=== PATIENT | male | born 1975 | race African-American/Black ===

== ENCOUNTER 2025-04-11 21:42 | Emergency (ER) | payer MEDICAID ==
[~2025-04-11] VITALS: Ht 172.7 cm; Wt 66.0 kg
[2025-04-11 21:46] VITALS: O2SAT 96
[2025-04-11] MEDS ORDERED: BO1 TP (22:34)
[2025-04-11] MEDS: TETANUS, DIPHTHERIA, PERTUSSIS VAC/PF 0.5ML (>10YR OLD) IM ONE (23:29)
[2025-04-11 23:30] VITALS: BP 119/77; PULSE 89; RESP 17; TEMP 37
== END 2025-04-11 23:29 | disposition home or self-care (01) ==
LOC: ER 21:42
DX: S60.511A Abrasion of right hand, initial encounter (principal); R09.81 Nasal congestion; Z23 Encounter for immunization; W19.XXXA Unspecified fall, initial encounter; Y93.89 Activity, other specified; Y92.89 Other specified places as the place of occurrence of the external cause; Y99.8 Other external cause status
CPT/HCPCS: 90471; 90715; 99283